=== PATIENT | male | born 1965 | race Two or more races ===

== ENCOUNTER 2019-08-31 11:19 | Inpatient (IN) | payer MEDICAID, OTHER ==
[~2019-08-31] VITALS: Ht 167.6 cm; Wt 90.0 kg
[2019-08-31] MEDS ORDERED: SODIUM CHLORIDE 0.9% 1,000 ML IV ONE ×4 (11:31→12:38)
[2019-08-31] MEDS ORDERED: PIPERACILLIN-TAZOB 3.375GM 100 ML IV ONE (12:45)
[2019-08-31] MEDS ORDERED: NOREPINEPHRINE 8 MG/250ML KIT 250 ML IV ONE (13:18)
[2019-08-31 13:20] LABS: Basophils # (auto) 0 10 ^3/uL (0-0.2); Basophils % (auto) 0.3 % (0.0-2.0); Eosinophils # (auto) 0 10 ^3/uL (0-0.8); Eosinophils % (auto) 0.1 % (0.0-7.0); Hematocrit 25.7 % (41.0-53.0); Hemoglobin 8.6 g/dL (13.5-17.5); Lymphocytes # (auto) 0.5 10 ^3/uL (0.4-5.4); Lymphocytes % (auto) 12.4 % (10.0-50.0); Mean Corpuscular Hemoglobin 29.8 pg (28.0-32.0); Mean Corpuscular Hgb Conc. 33.6 g/dL (32.0-36.0); Mean Corpuscular Volume 88.6 fL (80.0-100.0); Monocytes # (auto) 0.1 10 ^3/uL (0-1.3); Neutrophils # (auto) 3.6 10 ^3/uL (1.6-8.6); Neutrophils % (auto) 84.2 % (37.0-80.0); Platelet Count (auto) 201 10^3/uL (140-450); Red Cell Distribution Width 19.7 % (11.8-14.3); White Blood Cell 4.3 10^3/uL (4.4-10.8)
[2019-08-31 13:34] LABS: INR 1.22 (0.9-1.15); Partial Thromboplastin Time 35.6 sec (23.64-32.05)
[2019-08-31 13:40] LABS: Albumin 1.6 g/dL (3.4-5.0); Anion Gap 12 (5-15); Blood Urea Nitrogen 19 mg/dL (7-18); Calcium 7.4 mg/dL (8.5-10.1); Carbon Dioxide 32 mmol/L (21-32); Chloride 103 mmol/L (98-107); Glucose 151 mg/dL (74-106); Lipase 561 U/L (73-393); Sodium 147 mmol/L (136-145)
[2019-08-31] MEDS: NOREPINEPHRINE 8 MG/250ML KIT 250 ML IV SCH (13:43)
[2019-08-31 13:45] LABS: Alanine Aminotransferase 17 U/L (16-61); Alkaline Phosphatase 84 U/L (45-117); Aspartate Aminotransferase 14 U/L (15-37); BUN/Creatinine Ratio 10.4; Bilirubin, Total 0.3 mg/dL (0.2-1.0); GFR African American 51 mL/min; GFR Non-African American 42 mL/min
[2019-08-31 13:51] LABS: Potassium 1.5 mmol/L (3.5-5.1)
[2019-08-31] MEDS ORDERED: POTASSIUM CHL 20MEQ/100ML 300 ML IV ONE (13:52)
[2019-08-31] MEDS: POTASSIUM CHL 20MEQ/100ML 100 ML IV SCH ×4 (14:31→22:30)
[2019-08-31] MEDS ORDERED: NITROGLYCERIN 0.4 MG SL TAB SL PRN (15:15)
[2019-08-31] MEDS ORDERED: VANCOMYCIN PER PHARMACY 0 MG IV SCH (15:15)
[2019-08-31] MEDS ORDERED: ACETAMINOPHEN 500 MG TAB PO PRN (15:15)
[2019-08-31] MEDS ORDERED: MORPHINE SULF INJ 2 MG/ML SYRINGE 1ML IV PRN ×2 (15:15)
[2019-08-31] MEDS ORDERED: DEXTROSE (50%) 50ML SYRG IV PRN (15:15)
[2019-08-31] MEDS ORDERED: HYDROcodone-ACET 5/325MG TAB PO PRN (15:15)
[2019-08-31] MEDS ORDERED: DOCUSATE SOD 100 MG CAP PO PRN (15:15)
[2019-08-31] MEDS: SOD CHL 0.9%/ KCL 40MEQ 1,000 ML IV SCH (15:15)
[2019-08-31] MEDS ORDERED: VANCOMYCIN 1GM/250ML 250 ML IV ONE (15:30)
[2019-08-31] MEDS ORDERED: VANCOMYCIN 1GM/250ML 250 ML IV SCH (16:00)
[2019-08-31] MEDS: ACCU-CHEK COMFORT CURVE STRIP VI SCH ×2 (17:00→22:00)
[2019-08-31] MEDS: InsuLIN REG 1unit/0.01ml Soln (100units/ml) SC SCH ×2 (17:00→22:00)
[2019-08-31] MEDS: metroNIDAZOLE 500MG/100ML 100 ML IV SCH (18:24)
[2019-08-31 21:39] LABS: Calcium 7.5 mg/dL (8.5-10.1)
[2019-08-31 21:43] LABS: BUN/Creatinine Ratio 8.5; Bilirubin, Total 0.3 mg/dL (0.2-1.0)
[2019-08-31 21:59] LABS: Potassium 2.4 mmol/L (3.5-5.1)
[2019-08-31] MEDS: cefTRIAXone 1GM/50ML D5W 50 ML IV SCH (22:22)
[2019-09-01] VITALS (58 sets, daily range): BP systolic 94–129; BP diastolic 53–76
[2019-09-01] MEDS: POTASSIUM CHL 20MEQ/100ML 100 ML IV SCH ×4 (01:00→11:50)
[2019-09-01] MEDS: metroNIDAZOLE 500MG/100ML 100 ML IV SCH ×3 (02:00→18:32)
[2019-09-01] MEDS: SOD CHL 0.9%/ KCL 40MEQ 1,000 ML IV SCH ×3 (03:14→18:32)
[2019-09-01 05:44] LABS: Basophils # (auto) 0.1 10 ^3/uL (0-0.2); Basophils % (auto) 0.8 % (0.0-2.0); Eosinophils # (auto) 0 10 ^3/uL (0-0.8); Hematocrit 31.1 % (41.0-53.0); Hemoglobin 10.3 g/dL (13.5-17.5); Lymphocytes # (auto) 1.2 10 ^3/uL (0.4-5.4); Mean Corpuscular Hemoglobin 29.7 pg (28.0-32.0); Mean Corpuscular Hgb Conc. 33.1 g/dL (32.0-36.0); Mean Corpuscular Volume 89.8 fL (80.0-100.0); Monocytes # (auto) 0.7 10 ^3/uL (0-1.3); Monocytes % (auto) 4.4 % (0.0-12.0); Neutrophils # (auto) 12.9 10 ^3/uL (1.6-8.6); Neutrophils % (auto) 86.8 % (37.0-80.0); Nucleated Red Blood Cells % 0.1 %; Platelet Count (auto) 251 10^3/uL (140-450); Red Blood Cells 3.46 10^6/uL (4.5-5.90); White Blood Cell 14.8 10^3/uL (4.4-10.8)
[2019-09-01 05:56] LABS: Red Cell Distribution Width 20.3 % (11.8-14.3)
[2019-09-01 06:11] LABS: Calcium 7.3 mg/dL (8.5-10.1)
[2019-09-01 06:17] LABS: Albumin 1.9 g/dL (3.4-5.0); BUN/Creatinine Ratio 8.2; Bilirubin, Total 0.4 mg/dL (0.2-1.0); Magnesium 1.9 mg/dL (1.6-2.6); Total Protein 5.9 g/dL (6.4-8.2)
[2019-09-01 06:20] LABS: Potassium 2.9 mmol/L (3.5-5.1)
[2019-09-01] MEDS: ACCU-CHEK COMFORT CURVE STRIP VI SCH ×4 (06:51→21:48)
[2019-09-01] MEDS: InsuLIN REG 1unit/0.01ml Soln (100units/ml) SC SCH ×4 (06:51→21:48)
[2019-09-01] MEDS ORDERED: CATHFLO ACTIVASE (ALTEPLASE) 2 MG VIAL IV ONE (08:45)
[2019-09-01 10:00] LABS: Urine Bacteria FEW /hpf (None Seen); Urine Blood 1+ /uL (Negative); Urine Hyaline Cast FEW /lpf (0 - 2); Urine Mucus FEW (None Seen); Urine Specific Gravity 1.004 (1.001-1.035); Urine WBC 8 /hpf (0 - 3)
[2019-09-01] MEDS: FAMOTIDINE 20 MG TAB PO SCH (10:18)
[2019-09-01 14:13] LABS: BUN/Creatinine Ratio 7.6; Calcium 7.2 mg/dL (8.5-10.1); Potassium 3.9 mmol/L (3.5-5.1)
[2019-09-01] MEDS: NOREPINEPHRINE 8 MG/250ML KIT 250 ML IV SCH (14:21)
[2019-09-01] MEDS ORDERED: VANCOMYCIN 1GM/250ML 250 ML IV ONE (16:00)
[2019-09-01] MEDS ORDERED: METR500T PO (16:04)
[2019-09-01] MEDS ORDERED: CEFT1INJ6 IJ (16:04)
[2019-09-01] MEDS ORDERED: VANC125PO GT (16:05)
[2019-09-01] MEDS: cefTRIAXone 1GM/50ML D5W 50 ML IV SCH (21:48)
[2019-09-02] VITALS (30 sets, daily range): BP systolic 106–131; BP diastolic 57–82
[2019-09-02] MEDS: metroNIDAZOLE 500MG/100ML 100 ML IV SCH ×3 (02:00→18:00)
[2019-09-02 05:07] LABS: Calcium 7.6 mg/dL (8.5-10.1); Potassium 4.1 mmol/L (3.5-5.1)
[2019-09-02 05:12] LABS: Basophils # (auto) 0 10 ^3/uL (0-0.2); Basophils % (auto) 0.2 % (0.0-2.0); Eosinophils # (auto) 0 10 ^3/uL (0-0.8); Eosinophils % (auto) 0.1 % (0.0-7.0); Hematocrit 27.3 % (41.0-53.0); Hemoglobin 8.7 g/dL (13.5-17.5); Lymphocytes # (auto) 1.8 10 ^3/uL (0.4-5.4); Lymphocytes % (auto) 11.7 % (10.0-50.0); Mean Corpuscular Hgb Conc. 32.1 g/dL (32.0-36.0); Mean Corpuscular Volume 90.5 fL (80.0-100.0); Monocytes # (auto) 0.6 10 ^3/uL (0-1.3); Monocytes % (auto) 4.2 % (0.0-12.0); Neutrophils # (auto) 12.7 10 ^3/uL (1.6-8.6); Neutrophils % (auto) 83.8 % (37.0-80.0); Platelet Count (auto) 146 10^3/uL (140-450); Red Blood Cells 3.01 10^6/uL (4.5-5.90); Red Cell Distribution Width 20.8 % (11.8-14.3); White Blood Cell 15.1 10^3/uL (4.4-10.8)
[2019-09-02 05:14] LABS: Albumin 1.7 g/dL (3.4-5.0); BUN/Creatinine Ratio 8.1; Bilirubin, Total 0.4 mg/dL (0.2-1.0); Total Protein 5.4 g/dL (6.4-8.2)
[2019-09-02] MEDS: InsuLIN REG 1unit/0.01ml Soln (100units/ml) SC SCH ×4 (06:30→22:00)
[2019-09-02] MEDS: SOD CHL 0.9%/ KCL 40MEQ 1,000 ML IV SCH (06:30)
[2019-09-02] MEDS: ACCU-CHEK COMFORT CURVE STRIP VI SCH ×4 (06:30→22:24)
[2019-09-02] MEDS: FAMOTIDINE 20 MG TAB PO SCH (10:00)
[2019-09-02] MEDS: NOREPINEPHRINE 8 MG/250ML KIT 250 ML IV SCH (12:42)
[2019-09-02] MEDS: D5W/SOD CHL 0.45%/KCL 20MEQ 1,000 ML IV SCH ×2 (15:02→22:28)
[2019-09-02] MEDS: CEFEPIME 2 GM in SODIUM CHL 0.9% 50 ML IV SCH (15:02)
[2019-09-03] MEDS: CEFEPIME 2 GM in SODIUM CHL 0.9% 50 ML IV SCH ×2 (00:25→13:00)
[2019-09-03] MEDS: metroNIDAZOLE 500MG/100ML 100 ML IV SCH ×3 (01:31→17:40)
[2019-09-03 05:00] VITALS: BP 130/78
[2019-09-03] MEDS: InsuLIN REG 1unit/0.01ml Soln (100units/ml) SC SCH ×4 (06:10→21:37)
[2019-09-03] MEDS: ACCU-CHEK COMFORT CURVE STRIP VI SCH ×4 (06:10→21:37)
[2019-09-03 06:11] LABS: Basophils # (auto) 0 10 ^3/uL (0-0.2); Basophils % (auto) 0.4 % (0.0-2.0); Eosinophils # (auto) 0.1 10 ^3/uL (0-0.8); Hemoglobin 8.4 g/dL (13.5-17.5); Lymphocytes # (auto) 1.3 10 ^3/uL (0.4-5.4); Mean Corpuscular Hemoglobin 30.1 pg (28.0-32.0); Monocytes # (auto) 0.5 10 ^3/uL (0-1.3); White Blood Cell 11.8 10^3/uL (4.4-10.8)
[2019-09-03] MEDS: D5W/SOD CHL 0.45%/KCL 20MEQ 1,000 ML IV SCH ×2 (06:11→16:53)
[2019-09-03 06:15] LABS: Eosinophils % (auto) 0.6 % (0.0-7.0); Lymphocytes % (auto) 11.2 % (10.0-50.0); Mean Corpuscular Hgb Conc. 33.4 g/dL (32.0-36.0); Mean Corpuscular Volume 90.3 fL (80.0-100.0); Monocytes % (auto) 3.9 % (0.0-12.0); Neutrophils # (auto) 9.9 10 ^3/uL (1.6-8.6); Neutrophils % (auto) 83.9 % (37.0-80.0); Platelet Count (auto) 124 10^3/uL (140-450); Red Blood Cells 2.77 10^6/uL (4.5-5.90)
[2019-09-03 06:17] LABS: Red Cell Distribution Width 21.2 % (11.8-14.3)
[2019-09-03 06:32] LABS: Albumin 1.7 g/dL (3.4-5.0); Anion Gap 6 (5-15); Blood Urea Nitrogen 20 mg/dL (7-18); Calcium 7.9 mg/dL (8.5-10.1); Carbon Dioxide 30 mmol/L (21-32); Chloride 116 mmol/L (98-107); Glucose 119 mg/dL (74-106); Sodium 152 mmol/L (136-145)
[2019-09-03 06:39] LABS: Alanine Aminotransferase 17 U/L (16-61); Alkaline Phosphatase 102 U/L (45-117); Aspartate Aminotransferase 20 U/L (15-37); BUN/Creatinine Ratio 7.9; Bilirubin, Total 0.5 mg/dL (0.2-1.0); GFR African American 34 mL/min; GFR Non-African American 28 mL/min; Total Protein 5.5 g/dL (6.4-8.2)
[2019-09-03 09:00] VITALS: BP 126/69
[2019-09-03] MEDS: FAMOTIDINE 20 MG TAB PO SCH (10:01)
[2019-09-03 13:00] VITALS: BP 118/65
[2019-09-03] MEDS ORDERED: FLORASTOR (S. BOULARDII) 250 MG CAP PO ONE (16:00)
[2019-09-03 17:00] VITALS: BP 117/71
[2019-09-03] MEDS: LINEZOLID 600MG/300ML 300 ML IV SCH (21:37)
[2019-09-03 21:55] VITALS: BP 113/62
[2019-09-04] MEDS: CEFEPIME 2 GM in SODIUM CHL 0.9% 50 ML IV SCH ×2 (01:19→12:57)
[2019-09-04] MEDS: metroNIDAZOLE 500MG/100ML 100 ML IV SCH ×2 (01:20→09:47)
[2019-09-04 05:00] VITALS: BP 114/68
[2019-09-04] MEDS: D5W/SOD CHL 0.45%/KCL 20MEQ 1,000 ML IV SCH ×2 (05:34→12:58)
[2019-09-04] MEDS: ONDANSETRON HCL 4 MG/2 ML VIAL IV PRN (05:34)
[2019-09-04 06:11] LABS: Basophils # (auto) 0 10 ^3/uL (0-0.2); Basophils % (auto) 0.4 % (0.0-2.0); Eosinophils # (auto) 0.1 10 ^3/uL (0-0.8); Eosinophils % (auto) 1.5 % (0.0-7.0); Hematocrit 25.6 % (41.0-53.0); Hemoglobin 8.5 g/dL (13.5-17.5); Lymphocytes # (auto) 1.8 10 ^3/uL (0.4-5.4); Mean Corpuscular Hemoglobin 30.1 pg (28.0-32.0); Mean Corpuscular Hgb Conc. 33.2 g/dL (32.0-36.0); Mean Corpuscular Volume 90.7 fL (80.0-100.0); Monocytes # (auto) 0.4 10 ^3/uL (0-1.3); Monocytes % (auto) 5.1 % (0.0-12.0); Neutrophils # (auto) 5.9 10 ^3/uL (1.6-8.6); Nucleated Red Blood Cells % 0.1 %; Platelet Count (auto) 130 10^3/uL (140-450); Red Blood Cells 2.83 10^6/uL (4.5-5.90); White Blood Cell 8.3 10^3/uL (4.4-10.8)
[2019-09-04 06:17] LABS: Potassium 3.9 mmol/L (3.5-5.1)
[2019-09-04 06:19] LABS: Red Cell Distribution Width 20.7 % (11.8-14.3)
[2019-09-04 06:28] LABS: Albumin 1.7 g/dL (3.4-5.0); BUN/Creatinine Ratio 8.1; Bilirubin, Total 0.5 mg/dL (0.2-1.0); Calcium 7.6 mg/dL (8.5-10.1); Magnesium 1.5 mg/dL (1.6-2.6); Total Protein 5.6 g/dL (6.4-8.2)
[2019-09-04] MEDS: ACCU-CHEK COMFORT CURVE STRIP VI SCH ×4 (06:49→22:00)
[2019-09-04] MEDS: InsuLIN REG 1unit/0.01ml Soln (100units/ml) SC SCH ×4 (06:50→22:00)
[2019-09-04 09:00] VITALS: BP 121/76
[2019-09-04] MEDS: LINEZOLID 600MG/300ML 300 ML IV SCH ×2 (09:47→22:00)
[2019-09-04] MEDS: FLORASTOR (S. BOULARDII) 250 MG CAP PO SCH (09:47)
[2019-09-04] MEDS: FAMOTIDINE 20 MG TAB PO SCH (09:47)
[2019-09-04] MEDS: ENOXAPARIN SOD 30 MG/0.3 ML SYRINGE SC SCH (09:48)
[2019-09-04 13:00] VITALS: BP 112/72
[2019-09-04] MEDS: Glucerna Carbsteady SHAKE Stawberry 8oz PO SCH (17:48)
[2019-09-04 20:00] VITALS: BP 137/89
[2019-09-04 22:00] VITALS: BP 137/89
[2019-09-04] MEDS: metroNIDAZOLE 500 MG TAB PO SCH (22:00)
[2019-09-05] MEDS: D5W/SOD CHL 0.45%/KCL 20MEQ 1,000 ML IV SCH ×3 (01:12→12:15)
[2019-09-05] MEDS: CEFEPIME 2 GM in SODIUM CHL 0.9% 50 ML IV SCH ×2 (01:35→13:53)
[2019-09-05 05:00] VITALS: BP 116/73
[2019-09-05] MEDS: ACCU-CHEK COMFORT CURVE STRIP VI SCH ×4 (06:17→22:00)
[2019-09-05] MEDS: metroNIDAZOLE 500 MG TAB PO SCH ×3 (06:17→22:58)
[2019-09-05] MEDS: InsuLIN REG 1unit/0.01ml Soln (100units/ml) SC SCH ×4 (06:19→22:00)
[2019-09-05 06:51] LABS: Basophils # (auto) 0 10 ^3/uL (0-0.2); Basophils % (auto) 0.3 % (0.0-2.0); Eosinophils # (auto) 0.1 10 ^3/uL (0-0.8); Hemoglobin 8.3 g/dL (13.5-17.5); Monocytes # (auto) 0.3 10 ^3/uL (0-1.3)
[2019-09-05 06:53] LABS: Eosinophils % (auto) 1.3 % (0.0-7.0); Hematocrit 24.1 % (41.0-53.0); Lymphocytes # (auto) 1.4 10 ^3/uL (0.4-5.4); Lymphocytes % (auto) 26.9 % (10.0-50.0); Mean Corpuscular Hemoglobin 30.9 pg (28.0-32.0); Mean Corpuscular Hgb Conc. 34.5 g/dL (32.0-36.0); Mean Corpuscular Volume 89.6 fL (80.0-100.0); Monocytes % (auto) 6.9 % (0.0-12.0); Neutrophils # (auto) 3.2 10 ^3/uL (1.6-8.6); Neutrophils % (auto) 64.6 % (37.0-80.0); Nucleated Red Blood Cells % 0.1 %; Platelet Count (auto) 112 10^3/uL (140-450); Red Blood Cells 2.69 10^6/uL (4.5-5.90)
[2019-09-05 06:58] LABS: Red Cell Distribution Width 20.6 % (11.8-14.3)
[2019-09-05 07:04] LABS: BUN/Creatinine Ratio 7.6; Calcium 7.8 mg/dL (8.5-10.1); Potassium 3.7 mmol/L (3.5-5.1)
[2019-09-05] MEDS: Glucerna Carbsteady SHAKE Stawberry 8oz PO SCH ×2 (08:00→12:00)
[2019-09-05] MEDS ORDERED: diphenhdrAMINE HCL 50 MG/1 ML VL IV ONE (08:15)
[2019-09-05] MEDS ORDERED: MIDAZOLAM HCL 1MG/1ML-2 ML VIAL IV ONE (08:15)
[2019-09-05] MEDS ORDERED: LIDOCAINE VISCOUS 2% 15ML UD PO ONE (08:15)
[2019-09-05] MEDS ORDERED: fentaNYL CITRATE 100 MCG/2 ML VL IV ONE (08:15)
[2019-09-05] MEDS: FLORASTOR (S. BOULARDII) 250 MG CAP PO SCH (11:12)
[2019-09-05] MEDS: FAMOTIDINE 20 MG TAB PO SCH (11:12)
[2019-09-05] MEDS: ENOXAPARIN SOD 30 MG/0.3 ML SYRINGE SC SCH (11:13)
[2019-09-05] MEDS: LINEZOLID 600MG/300ML 300 ML IV SCH ×2 (11:27→22:56)
[2019-09-05 20:00] VITALS: BP 104/73
[2019-09-05 21:00] VITALS: BP 104/73
[2019-09-05] MEDS ORDERED: LORazepam 2MG/ML-1ML VIAL IV PRN ×2 (22:15)
[2019-09-05 22:47] LABS: Folate (Folic Acid) 9.75 ng/mL (5.38-24)
[2019-09-05] MEDS: CARVEDILOL 3.125 MG TAB PO SCH (22:57)
[2019-09-05] MEDS: ONDANSETRON HCL 4 MG/2 ML VIAL IV PRN (22:58)
[2019-09-06] VITALS (7 sets, daily range): BP systolic 101–117; BP diastolic 69–78
[2019-09-06] MEDS: CEFEPIME 2 GM in SODIUM CHL 0.9% 50 ML IV SCH (00:59)
[2019-09-06] MEDS: D5W/SOD CHL 0.45%/KCL 20MEQ 1,000 ML IV SCH (04:55)
[2019-09-06] MEDS: metroNIDAZOLE 500 MG TAB PO SCH ×3 (06:33→22:49)
[2019-09-06] MEDS: ACCU-CHEK COMFORT CURVE STRIP VI SCH ×4 (06:33→22:30)
[2019-09-06] MEDS: InsuLIN REG 1unit/0.01ml Soln (100units/ml) SC SCH ×4 (06:33→22:30)
[2019-09-06] MEDS: Glucerna Carbsteady SHAKE Stawberry 8oz PO SCH ×3 (08:00→18:18)
[2019-09-06] MEDS ORDERED: MAGNESIUM SULFATE 1GM/100ML 100 ML IV ONE ×2 (08:30→09:30)
[2019-09-06] MEDS: FAMOTIDINE 20 MG TAB PO SCH (09:25)
[2019-09-06] MEDS: LINEZOLID 600MG/300ML 300 ML IV SCH ×2 (09:26→22:47)
[2019-09-06] MEDS: CARVEDILOL 3.125 MG TAB PO SCH ×2 (09:26→22:49)
[2019-09-06] MEDS: ENOXAPARIN SOD 30 MG/0.3 ML SYRINGE SC SCH (09:27)
[2019-09-06] MEDS: FLORASTOR (S. BOULARDII) 250 MG CAP PO SCH (09:41)
[2019-09-06] MEDS ORDERED: PROMETHAZINE W/CODEINE 5 ML ORAL SYRUP PO PRN (12:45)
[2019-09-07] VITALS (7 sets, daily range): BP systolic 111–123; BP diastolic 70–82
[2019-09-07] MEDS: metroNIDAZOLE 500 MG TAB PO SCH ×3 (06:32→21:48)
[2019-09-07] MEDS: InsuLIN REG 1unit/0.01ml Soln (100units/ml) SC SCH ×4 (06:32→22:00)
[2019-09-07] MEDS: ACCU-CHEK COMFORT CURVE STRIP VI SCH ×4 (06:32→22:00)
[2019-09-07 07:41] LABS: Basophils # (auto) 0 10 ^3/uL (0-0.2); Basophils % (auto) 0.2 % (0.0-2.0); Eosinophils # (auto) 0 10 ^3/uL (0-0.8); Eosinophils % (auto) 0.6 % (0.0-7.0); Hematocrit 26.6 % (41.0-53.0); Lymphocytes # (auto) 1.2 10 ^3/uL (0.4-5.4); Lymphocytes % (auto) 21.2 % (10.0-50.0); Mean Corpuscular Hemoglobin 30.5 pg (28.0-32.0); Mean Corpuscular Hgb Conc. 33.9 g/dL (32.0-36.0); Mean Corpuscular Volume 89.8 fL (80.0-100.0); Monocytes # (auto) 0.3 10 ^3/uL (0-1.3); Monocytes % (auto) 5.7 % (0.0-12.0); Neutrophils # (auto) 4.3 10 ^3/uL (1.6-8.6); Neutrophils % (auto) 72.3 % (37.0-80.0); Nucleated Red Blood Cells % 0.1 %; Platelet Count (auto) 109 10^3/uL (140-450); Red Blood Cells 2.97 10^6/uL (4.5-5.90); White Blood Cell 5.9 10^3/uL (4.4-10.8)
[2019-09-07 07:55] LABS: Red Cell Distribution Width 20.3 % (11.8-14.3)
[2019-09-07] MEDS: Glucerna Carbsteady SHAKE Stawberry 8oz PO SCH ×3 (08:00→18:00)
[2019-09-07 08:05] LABS: BUN/Creatinine Ratio 8.5; Potassium 4.1 mmol/L (3.5-5.1)
[2019-09-07] MEDS ORDERED: levoFLOXacin 500 MG TAB PO SCH (10:00)
[2019-09-07] MEDS: LINEZOLID 600MG/300ML 300 ML IV SCH ×2 (10:25→21:47)
[2019-09-07] MEDS: FAMOTIDINE 20 MG TAB PO SCH (10:25)
[2019-09-07] MEDS: FLORASTOR (S. BOULARDII) 250 MG CAP PO SCH (10:26)
[2019-09-07] MEDS: CARVEDILOL 3.125 MG TAB PO SCH ×2 (10:26→21:48)
[2019-09-07] MEDS: ENOXAPARIN SOD 30 MG/0.3 ML SYRINGE SC SCH (10:28)
[2019-09-07] MEDS: ONDANSETRON HCL 4 MG/2 ML VIAL IV PRN (12:20)
[2019-09-08 00:25] VITALS: BP 123/82
[2019-09-08 05:00] VITALS: BP 118/70
[2019-09-08] MEDS: metroNIDAZOLE 500 MG TAB PO SCH ×3 (06:48→22:08)
[2019-09-08] MEDS: ACCU-CHEK COMFORT CURVE STRIP VI SCH ×4 (06:49→22:00)
[2019-09-08] MEDS: InsuLIN REG 1unit/0.01ml Soln (100units/ml) SC SCH ×4 (06:50→22:00)
[2019-09-08] MEDS: Glucerna Carbsteady SHAKE Stawberry 8oz PO SCH ×3 (08:00→19:00)
[2019-09-08 09:00] VITALS: BP 126/78
[2019-09-08] MEDS: ONDANSETRON HCL 4 MG/2 ML VIAL IV PRN (09:47)
[2019-09-08] MEDS ORDERED: levoFLOXacin 250MG 50 ML IV SCH (10:00)
[2019-09-08] MEDS: LINEZOLID 600MG/300ML 300 ML IV SCH ×2 (10:15→22:06)
[2019-09-08] MEDS: levoFLOXacin 250 MG TAB PO SCH (10:16)
[2019-09-08] MEDS: ENOXAPARIN SOD 30 MG/0.3 ML SYRINGE SC SCH (10:16)
[2019-09-08] MEDS: FAMOTIDINE 20 MG TAB PO SCH (10:16)
[2019-09-08] MEDS: FLORASTOR (S. BOULARDII) 250 MG CAP PO SCH (10:21)
[2019-09-08] MEDS: CARVEDILOL 3.125 MG TAB PO SCH ×2 (10:23→22:07)
[2019-09-08 13:00] VITALS: BP 119/74
[2019-09-08] MEDS ORDERED: FAMOTIDINE 20 MG TAB PO ONE (14:45)
[2019-09-08 16:32] VITALS: BP 119/71
[2019-09-08 22:00] VITALS: BP 117/77
[2019-09-09] MEDS: ONDANSETRON HCL 4 MG/2 ML VIAL IV PRN (05:03)
[2019-09-09 05:14] VITALS: BP 125/78
[2019-09-09] MEDS: metroNIDAZOLE 500 MG TAB PO SCH ×3 (06:09→22:00)
[2019-09-09 06:22] LABS: Basophils # (auto) 0 10 ^3/uL (0-0.2); Basophils % (auto) 0.2 % (0.0-2.0); Eosinophils # (auto) 0 10 ^3/uL (0-0.8); Eosinophils % (auto) 0.5 % (0.0-7.0); Hematocrit 25.5 % (41.0-53.0); Hemoglobin 8.8 g/dL (13.5-17.5); Lymphocytes % (auto) 20.6 % (10.0-50.0); Mean Corpuscular Hemoglobin 30.5 pg (28.0-32.0); Mean Corpuscular Hgb Conc. 34.4 g/dL (32.0-36.0); Mean Corpuscular Volume 88.7 fL (80.0-100.0); Monocytes # (auto) 0.2 10 ^3/uL (0-1.3); Neutrophils # (auto) 3.6 10 ^3/uL (1.6-8.6); Neutrophils % (auto) 73.7 % (37.0-80.0); Platelet Count (auto) 135 10^3/uL (140-450); Red Blood Cells 2.87 10^6/uL (4.5-5.90); Red Cell Distribution Width 19.8 % (11.8-14.3); White Blood Cell 4.9 10^3/uL (4.4-10.8)
[2019-09-09] MEDS: InsuLIN REG 1unit/0.01ml Soln (100units/ml) SC SCH ×4 (06:40→22:00)
[2019-09-09] MEDS: ACCU-CHEK COMFORT CURVE STRIP VI SCH ×4 (06:40→22:00)
[2019-09-09 06:42] LABS: BUN/Creatinine Ratio 8.9; Calcium 7.7 mg/dL (8.5-10.1); Potassium 3.5 mmol/L (3.5-5.1)
[2019-09-09 09:00] VITALS: BP 116/76
[2019-09-09] MEDS: Glucerna Carbsteady SHAKE Stawberry 8oz PO SCH ×4 (09:26→18:45)
[2019-09-09] MEDS: CARVEDILOL 3.125 MG TAB PO SCH ×2 (10:17→22:00)
[2019-09-09] MEDS: LINEZOLID 600MG/300ML 300 ML IV SCH ×2 (10:17→22:00)
[2019-09-09] MEDS: FLORASTOR (S. BOULARDII) 250 MG CAP PO SCH (10:18)
[2019-09-09] MEDS: FAMOTIDINE 20 MG TAB PO SCH (10:18)
[2019-09-09] MEDS: levoFLOXacin 250 MG TAB PO SCH (10:20)
[2019-09-09] MEDS: ENOXAPARIN SOD 30 MG/0.3 ML SYRINGE SC SCH (10:21)
[2019-09-09 13:00] VITALS: BP 132/81
[2019-09-09] MEDS: SOD CHL 0.45% 1,000 ML IV SCH (13:12)
[2019-09-09 17:00] VITALS: BP 122/75
[2019-09-09 22:00] VITALS: BP 123/76
[2019-09-10 05:00] VITALS: BP 125/71
[2019-09-10] MEDS: SOD CHL 0.45% 1,000 ML IV SCH (05:25)
[2019-09-10 06:06] LABS: BUN/Creatinine Ratio 8.7; Calcium 7.7 mg/dL (8.5-10.1); Potassium 3.5 mmol/L (3.5-5.1)
[2019-09-10] MEDS: metroNIDAZOLE 500 MG TAB PO SCH (06:49)
[2019-09-10] MEDS: InsuLIN REG 1unit/0.01ml Soln (100units/ml) SC SCH ×4 (07:00→21:31)
[2019-09-10] MEDS: ACCU-CHEK COMFORT CURVE STRIP VI SCH ×4 (07:03→21:31)
[2019-09-10 08:00] VITALS: BP 136/83
[2019-09-10] MEDS: Glucerna Carbsteady SHAKE Stawberry 8oz PO SCH ×3 (08:00→17:37)
[2019-09-10 08:17] LABS: INR 1.13 (0.9-1.15); Partial Thromboplastin Time 38.4 sec (23.64-32.05)
[2019-09-10 09:00] VITALS: BP 136/83
[2019-09-10] MEDS: FLORASTOR (S. BOULARDII) 250 MG CAP PO SCH (10:00)
[2019-09-10] MEDS ORDERED: MEGESTROL ACET 400MG/10ML ORAL SUSP PO SCH (10:00)
[2019-09-10] MEDS: FAMOTIDINE 20 MG TAB PO SCH (10:00)
[2019-09-10] MEDS: CARVEDILOL 3.125 MG TAB PO SCH ×2 (10:00→21:51)
[2019-09-10] MEDS: levoFLOXacin 250 MG TAB PO SCH (10:00)
[2019-09-10] MEDS: LINEZOLID 600MG/300ML 300 ML IV SCH ×2 (10:11→21:31)
[2019-09-10] MEDS: ENOXAPARIN SOD 30 MG/0.3 ML SYRINGE SC SCH (10:16)
[2019-09-10 13:00] VITALS: BP 133/81
[2019-09-10 13:44] LABS: Basophils # (auto) 0 10 ^3/uL (0-0.2); Basophils % (auto) 0.1 % (0.0-2.0); Eosinophils # (auto) 0 10 ^3/uL (0-0.8); Eosinophils % (auto) 0.3 % (0.0-7.0); Hematocrit 27.6 % (41.0-53.0); Hemoglobin 9.2 g/dL (13.5-17.5); Lymphocytes # (auto) 0.8 10 ^3/uL (0.4-5.4); Lymphocytes % (auto) 16.8 % (10.0-50.0); Mean Corpuscular Hemoglobin 29.4 pg (28.0-32.0); Mean Corpuscular Hgb Conc. 33.2 g/dL (32.0-36.0); Mean Corpuscular Volume 88.6 fL (80.0-100.0); Monocytes # (auto) 0.2 10 ^3/uL (0-1.3); Monocytes % (auto) 4.5 % (0.0-12.0); Neutrophils # (auto) 3.9 10 ^3/uL (1.6-8.6); Neutrophils % (auto) 78.3 % (37.0-80.0); Platelet Count (auto) 151 10^3/uL (140-450); Red Blood Cells 3.12 10^6/uL (4.5-5.90); Red Cell Distribution Width 19.7 % (11.8-14.3); White Blood Cell 4.9 10^3/uL (4.4-10.8)
[2019-09-10 13:57] LABS: Albumin 1.8 g/dL (3.4-5.0); Calcium 7.8 mg/dL (8.5-10.1); Potassium 3.7 mmol/L (3.5-5.1)
[2019-09-10 14:00] LABS: BUN/Creatinine Ratio 8.6; Bilirubin, Total 0.6 mg/dL (0.2-1.0); INR 1.18 (0.9-1.15); Partial Thromboplastin Time 44.4 sec (23.64-32.05); Total Protein 5.8 g/dL (6.4-8.2)
[2019-09-10] MEDS: SODIUM CHLORIDE 0.9% 1,000 ML IV SCH (14:45)
[2019-09-10 17:00] VITALS: BP 124/84
[2019-09-10] MEDS: SUCRALFATE 1 GM/10 ML ORAL SUSP PO SCH (17:00)
[2019-09-10 22:00] VITALS: BP 129/75
[2019-09-11 05:00] VITALS: BP 128/72
[2019-09-11] MEDS: SUCRALFATE 1 GM/10 ML ORAL SUSP PO SCH ×2 (06:11→17:00)
[2019-09-11] MEDS: InsuLIN REG 1unit/0.01ml Soln (100units/ml) SC SCH ×4 (06:11→22:00)
[2019-09-11] MEDS: ACCU-CHEK COMFORT CURVE STRIP VI SCH ×4 (06:12→22:35)
[2019-09-11 08:00] VITALS: BP 116/80
[2019-09-11] MEDS: Glucerna Carbsteady SHAKE Stawberry 8oz PO SCH ×3 (08:00→17:45)
[2019-09-11] MEDS: FLORASTOR (S. BOULARDII) 250 MG CAP PO SCH (08:58)
[2019-09-11] MEDS: FAMOTIDINE 20 MG TAB PO SCH (08:58)
[2019-09-11] MEDS: ENOXAPARIN SOD 30 MG/0.3 ML SYRINGE SC SCH (08:58)
[2019-09-11] MEDS: CARVEDILOL 3.125 MG TAB PO SCH ×2 (08:58→22:29)
[2019-09-11] MEDS: SODIUM CHLORIDE 0.9% 1,000 ML IV SCH ×2 (08:59→22:26)
[2019-09-11] MEDS ORDERED: SODIUM CHLORIDE LOCK 10 ML ONE (09:54)
[2019-09-11] MEDS ORDERED: fentaNYL CITRATE 100 MCG/2 ML VL ONE (09:54)
[2019-09-11] MEDS ORDERED: MIDAZOLAM HCL 1MG/1ML-2 ML VIAL ONE (09:54)
[2019-09-11] MEDS ORDERED: ONDANSETRON HCL 4 MG/2 ML VIAL ONE (09:54)
[2019-09-11] MEDS ORDERED: PROPOFOL 10 MG/ML 20 ML IV ONE (09:54)
[2019-09-11] MEDS: levoFLOXacin 250MG 50 ML IV SCH (10:00)
[2019-09-11] MEDS: LINEZOLID 600MG/300ML 300 ML IV SCH ×2 (10:00→22:27)
[2019-09-11] MEDS ORDERED: BUPIVACAINE HCL 50 ML ONE (10:57)
[2019-09-11] MEDS ORDERED: ceFAZolin 1GM/50ML 50 ML IV ONE (11:09)
[2019-09-11] MEDS ORDERED: EPINEPHrine HCL 1 MG/1 ML AMP ONE (11:33)
[2019-09-11 16:57] VITALS: BP 130/77
[2019-09-11 22:00] VITALS: BP 140/73
[2019-09-12 05:00] VITALS: BP 136/73
[2019-09-12 06:23] LABS: Basophils # (auto) 0 10 ^3/uL (0-0.2); Basophils % (auto) 0.5 % (0.0-2.0); Eosinophils # (auto) 0 10 ^3/uL (0-0.8); Eosinophils % (auto) 0.5 % (0.0-7.0); Hematocrit 26.4 % (41.0-53.0); Lymphocytes # (auto) 0.7 10 ^3/uL (0.4-5.4); Lymphocytes % (auto) 17.9 % (10.0-50.0); Mean Corpuscular Hemoglobin 30.2 pg (28.0-32.0); Mean Corpuscular Hgb Conc. 34.1 g/dL (32.0-36.0); Mean Corpuscular Volume 88.5 fL (80.0-100.0); Monocytes # (auto) 0.2 10 ^3/uL (0-1.3); Monocytes % (auto) 4.1 % (0.0-12.0); Neutrophils # (auto) 3.2 10 ^3/uL (1.6-8.6); Nucleated Red Blood Cells % 0.1 %; Platelet Count (auto) 127 10^3/uL (140-450); Red Blood Cells 2.98 10^6/uL (4.5-5.90); Red Cell Distribution Width 19.3 % (11.8-14.3); White Blood Cell 4.1 10^3/uL (4.4-10.8)
[2019-09-12 06:35] LABS: Calcium 7.6 mg/dL (8.5-10.1); Potassium 3.1 mmol/L (3.5-5.1)
[2019-09-12 06:38] LABS: BUN/Creatinine Ratio 8.4
[2019-09-12] MEDS: SUCRALFATE 1 GM/10 ML ORAL SUSP PO SCH ×2 (07:00→17:00)
[2019-09-12] MEDS: InsuLIN REG 1unit/0.01ml Soln (100units/ml) SC SCH ×4 (07:00→22:00)
[2019-09-12] MEDS: ACCU-CHEK COMFORT CURVE STRIP VI SCH ×4 (07:20→22:03)
[2019-09-12] MEDS: Glucerna Carbsteady SHAKE Stawberry 8oz PO SCH ×3 (08:00→17:28)
[2019-09-12 08:34] VITALS: BP 126/70
[2019-09-12] MEDS: levoFLOXacin 250MG 50 ML IV SCH (10:00)
[2019-09-12] MEDS: LINEZOLID 600MG/300ML 300 ML IV SCH ×2 (10:00→22:00)
[2019-09-12] MEDS: FAMOTIDINE 20 MG TAB PO SCH (10:00)
[2019-09-12] MEDS: CARVEDILOL 3.125 MG TAB PO SCH ×2 (10:00→22:00)
[2019-09-12] MEDS: ENOXAPARIN SOD 30 MG/0.3 ML SYRINGE SC SCH (10:00)
[2019-09-12] MEDS: FLORASTOR (S. BOULARDII) 250 MG CAP PO SCH (10:00)
[2019-09-12] MEDS ORDERED: POTASSIUM EFFERVESENT TAB 25 MEQ PO ONE (12:15)
[2019-09-12 13:00] VITALS: BP 127/78
[2019-09-12 16:47] VITALS: BP 132/74
[2019-09-12] MEDS: SODIUM CHLORIDE 0.9% 1,000 ML IV SCH (17:27)
[2019-09-12 21:53] VITALS: BP 140/86
[2019-09-13 05:00] VITALS: BP 120/70
[2019-09-13] MEDS: ACCU-CHEK COMFORT CURVE STRIP VI SCH ×4 (06:11→22:00)
[2019-09-13] MEDS: InsuLIN REG 1unit/0.01ml Soln (100units/ml) SC SCH ×4 (06:12→22:00)
[2019-09-13] MEDS: SUCRALFATE 1 GM/10 ML ORAL SUSP PO SCH ×2 (06:12→17:36)
[2019-09-13 06:31] LABS: Calcium 7.7 mg/dL (8.5-10.1)
[2019-09-13 06:37] LABS: Potassium 2.9 mmol/L (3.5-5.1)
[2019-09-13] MEDS ORDERED: POTASSIUM EFFERVESENT TAB 25 MEQ PO ONE (07:00)
[2019-09-13] MEDS: Glucerna Carbsteady SHAKE Stawberry 8oz PO SCH ×3 (08:00→17:36)
[2019-09-13] MEDS ORDERED: SODIUM CHLORIDE LOCK 10 ML ONE (08:24)
[2019-09-13] MEDS ORDERED: MIDAZOLAM HCL 5 MG/ML-1ML VIAL ONE (08:24)
[2019-09-13] MEDS ORDERED: diphenhdrAMINE HCL 50 MG/1 ML VL ONE (08:24)
[2019-09-13] MEDS ORDERED: LIDOCAINE VISCOUS 2% 15ML UD ONE (08:24)
[2019-09-13] MEDS ORDERED: fentaNYL CITRATE 100 MCG/2 ML VL ONE (08:25)
[2019-09-13 08:56] VITALS: BP 135/78
[2019-09-13] MEDS: SODIUM CHLORIDE 0.9% 1,000 ML IV SCH (09:25)
[2019-09-13] MEDS: levoFLOXacin 250MG 50 ML IV SCH (09:33)
[2019-09-13] MEDS: PANTOPRAZOLE 40 MG/10 ML VIAL INJ IV SCH (09:34)
[2019-09-13] MEDS: LINEZOLID 600MG/300ML 300 ML IV SCH ×2 (09:34→22:26)
[2019-09-13] MEDS: CARVEDILOL 3.125 MG TAB PO SCH ×3 (09:36→22:00)
[2019-09-13] MEDS: FLORASTOR (S. BOULARDII) 250 MG CAP PO SCH ×2 (09:36→09:55)
[2019-09-13] MEDS: ENOXAPARIN SOD 30 MG/0.3 ML SYRINGE SC SCH ×2 (09:38→09:56)
[2019-09-13 13:00] VITALS: BP 110/76
[2019-09-13] MEDS ORDERED: MULTIPLE VITAMIN TAB PO ONE (13:00)
[2019-09-13] MEDS: POTASSIUM CHL 20MEQ/100ML 100 ML IV SCH ×3 (13:51→17:36)
[2019-09-13] MEDS: NYSTATIN (MOUTH-THROAT) 500,000 UNITS/5 ML SUSP MT SCH ×2 (17:37→22:00)
[2019-09-13 22:00] VITALS: BP 140/81
[2019-09-13] MEDS: METOCLOPRAMIDE HCL 5MG/ml INJ 2ml VIAL IV SCH (22:26)
[2019-09-14] MEDS: SODIUM CHLORIDE 0.9% 1,000 ML IV SCH ×2 (01:57→17:46)
[2019-09-14 05:01] VITALS: BP 122/74
[2019-09-14] MEDS: NYSTATIN (MOUTH-THROAT) 500,000 UNITS/5 ML SUSP MT SCH ×5 (06:00→22:50)
[2019-09-14] MEDS: SUCRALFATE 1 GM/10 ML ORAL SUSP PO SCH ×3 (06:28→17:47)
[2019-09-14] MEDS: METOCLOPRAMIDE HCL 5MG/ml INJ 2ml VIAL IV SCH ×2 (06:28→14:36)
[2019-09-14] MEDS: ACCU-CHEK COMFORT CURVE STRIP VI SCH ×4 (06:50→22:54)
[2019-09-14] MEDS: InsuLIN REG 1unit/0.01ml Soln (100units/ml) SC SCH ×4 (06:51→22:50)
[2019-09-14] MEDS: Glucerna Carbsteady SHAKE Stawberry 8oz PO SCH ×3 (08:05→17:46)
[2019-09-14 09:10] LABS: Basophils # (auto) 0 10 ^3/uL (0-0.2); Basophils % (auto) 0.1 % (0.0-2.0); Eosinophils # (auto) 0 10 ^3/uL (0-0.8); Eosinophils % (auto) 0.5 % (0.0-7.0); Hemoglobin 7.8 g/dL (13.5-17.5); Lymphocytes # (auto) 1.1 10 ^3/uL (0.4-5.4); White Blood Cell 5.5 10^3/uL (4.4-10.8)
[2019-09-14 09:11] LABS: Hematocrit 23.1 % (41.0-53.0); Lymphocytes % (auto) 19.5 % (10.0-50.0); Mean Corpuscular Hgb Conc. 33.6 g/dL (32.0-36.0); Mean Corpuscular Volume 89.2 fL (80.0-100.0); Monocytes # (auto) 0.2 10 ^3/uL (0-1.3); Monocytes % (auto) 2.9 % (0.0-12.0); Neutrophils # (auto) 4.3 10 ^3/uL (1.6-8.6); Platelet Count (auto) 96 10^3/uL (140-450); Red Blood Cells 2.58 10^6/uL (4.5-5.90); Red Cell Distribution Width 18.7 % (11.8-14.3)
[2019-09-14 09:33] LABS: BUN/Creatinine Ratio 7.8; Calcium 7.7 mg/dL (8.5-10.1); Potassium 3.5 mmol/L (3.5-5.1)
[2019-09-14 09:35] VITALS: BP 130/69
[2019-09-14] MEDS: ENOXAPARIN SOD 30 MG/0.3 ML SYRINGE SC SCH (10:00)
[2019-09-14] MEDS: CARVEDILOL 3.125 MG TAB PO SCH ×2 (10:00→22:50)
[2019-09-14] MEDS: MULTIPLE VITAMIN TAB PO SCH (10:00)
[2019-09-14] MEDS: FLORASTOR (S. BOULARDII) 250 MG CAP PO SCH (10:00)
[2019-09-14] MEDS: LINEZOLID 600MG/300ML 300 ML IV SCH ×2 (11:07→22:57)
[2019-09-14] MEDS: levoFLOXacin 250MG 50 ML IV SCH (11:07)
[2019-09-14] MEDS: PANTOPRAZOLE 40 MG/10 ML VIAL INJ IV SCH (11:15)
[2019-09-14 13:00] VITALS: BP 112/69
[2019-09-14 17:04] VITALS: BP 128/77
[2019-09-14] MEDS: METOCLOPRAMIDE HCL 10 MG TAB PO SCH ×2 (17:46→22:50)
[2019-09-14 19:32] LABS: Hemoglobin 7.7 g/dL (13.5-17.5)
[2019-09-14 19:34] LABS: Hematocrit 22.7 % (41.0-53.0)
[2019-09-14 22:20] VITALS: BP 129/75
[2019-09-15 05:04] VITALS: BP 136/73
[2019-09-15] MEDS: ONDANSETRON HCL 4 MG/2 ML VIAL IV PRN (05:28)
[2019-09-15] MEDS: NYSTATIN (MOUTH-THROAT) 500,000 UNITS/5 ML SUSP MT SCH ×4 (06:00→21:46)
[2019-09-15 06:09] LABS: Basophils # (auto) 0 10 ^3/uL (0-0.2); Eosinophils # (auto) 0 10 ^3/uL (0-0.8); Hematocrit 22.8 % (41.0-53.0); Hemoglobin 7.7 g/dL (13.5-17.5); Lymphocytes # (auto) 1.1 10 ^3/uL (0.4-5.4); Mean Corpuscular Hgb Conc. 33.8 g/dL (32.0-36.0); Monocytes # (auto) 0.1 10 ^3/uL (0-1.3)
[2019-09-15 06:12] LABS: Basophils % (auto) 0.2 % (0.0-2.0); Eosinophils % (auto) 0.4 % (0.0-7.0); Lymphocytes % (auto) 21.1 % (10.0-50.0); Mean Corpuscular Hemoglobin 30.3 pg (28.0-32.0); Mean Corpuscular Volume 89.6 fL (80.0-100.0); Monocytes % (auto) 2.7 % (0.0-12.0); Neutrophils # (auto) 4.1 10 ^3/uL (1.6-8.6); Neutrophils % (auto) 75.6 % (37.0-80.0); Platelet Count (auto) 90 10^3/uL (140-450); Red Blood Cells 2.54 10^6/uL (4.5-5.90); Red Cell Distribution Width 18.2 % (11.8-14.3); White Blood Cell 5.4 10^3/uL (4.4-10.8)
[2019-09-15] MEDS: SUCRALFATE 1 GM/10 ML ORAL SUSP PO SCH ×2 (06:21→17:00)
[2019-09-15] MEDS: METOCLOPRAMIDE HCL 10 MG TAB PO SCH ×4 (06:21→21:45)
[2019-09-15] MEDS: ACCU-CHEK COMFORT CURVE STRIP VI SCH ×4 (06:21→21:44)
[2019-09-15] MEDS: InsuLIN REG 1unit/0.01ml Soln (100units/ml) SC SCH ×4 (06:22→21:45)
[2019-09-15 06:25] LABS: Calcium 7.6 mg/dL (8.5-10.1); Potassium 3.1 mmol/L (3.5-5.1)
[2019-09-15 06:29] LABS: BUN/Creatinine Ratio 7.1
[2019-09-15] MEDS: Glucerna Carbsteady SHAKE Stawberry 8oz PO SCH ×3 (08:00→17:42)
[2019-09-15 09:08] VITALS: BP 131/80
[2019-09-15] MEDS: ENOXAPARIN SOD 30 MG/0.3 ML SYRINGE SC SCH (10:00)
[2019-09-15] MEDS: LINEZOLID 600MG/300ML 300 ML IV SCH ×2 (10:16→21:46)
[2019-09-15] MEDS: PANTOPRAZOLE 40 MG/10 ML VIAL INJ IV SCH (10:17)
[2019-09-15] MEDS: levoFLOXacin 250MG 50 ML IV SCH (10:17)
[2019-09-15] MEDS: MULTIPLE VITAMIN TAB PO SCH (10:25)
[2019-09-15] MEDS: FLORASTOR (S. BOULARDII) 250 MG CAP PO SCH (10:25)
[2019-09-15] MEDS: CARVEDILOL 3.125 MG TAB PO SCH ×2 (10:27→21:46)
[2019-09-15] MEDS ORDERED: POTASSIUM EFFERVESENT TAB 25 MEQ PO ONE (12:15)
[2019-09-15 12:47] VITALS: BP 121/69
[2019-09-15] MEDS: SODIUM CHLORIDE 0.9% 1,000 ML IV SCH (13:18)
[2019-09-15] MEDS ORDERED: POTASSIUM CHL 20MEQ/100ML 100 ML IV ONE (13:30)
[2019-09-15 17:00] VITALS: BP 111/69
[2019-09-15 22:31] VITALS: BP 119/68
[2019-09-16 05:25] VITALS: BP 110/65
[2019-09-16] MEDS: NYSTATIN (MOUTH-THROAT) 500,000 UNITS/5 ML SUSP MT SCH ×4 (05:54→22:00)
[2019-09-16] MEDS: ACCU-CHEK COMFORT CURVE STRIP VI SCH ×4 (06:33→22:00)
[2019-09-16] MEDS: InsuLIN REG 1unit/0.01ml Soln (100units/ml) SC SCH ×4 (06:34→22:00)
[2019-09-16] MEDS: METOCLOPRAMIDE HCL 10 MG TAB PO SCH ×4 (06:35→22:00)
[2019-09-16] MEDS: SUCRALFATE 1 GM/10 ML ORAL SUSP PO SCH ×2 (06:36→17:00)
[2019-09-16 06:57] LABS: Hemoglobin 7.2 g/dL (13.5-17.5); Platelet Count (auto) 67 10^3/uL (140-450); White Blood Cell 4.6 10^3/uL (4.4-10.8)
[2019-09-16 07:00] LABS: Basophils # (auto) 0 10 ^3/uL (0-0.2); Basophils % (auto) 0.1 % (0.0-2.0); Eosinophils # (auto) 0 10 ^3/uL (0-0.8); Eosinophils % (auto) 0.8 % (0.0-7.0); Hematocrit 21.1 % (41.0-53.0); Lymphocytes # (auto) 1.3 10 ^3/uL (0.4-5.4); Lymphocytes % (auto) 27.6 % (10.0-50.0); Mean Corpuscular Hemoglobin 30.5 pg (28.0-32.0); Mean Corpuscular Hgb Conc. 34.2 g/dL (32.0-36.0); Mean Corpuscular Volume 89.3 fL (80.0-100.0); Monocytes # (auto) 0.1 10 ^3/uL (0-1.3); Monocytes % (auto) 2.5 % (0.0-12.0); Neutrophils # (auto) 3.2 10 ^3/uL (1.6-8.6); Red Blood Cells 2.36 10^6/uL (4.5-5.90); Red Cell Distribution Width 17.3 % (11.8-14.3)
[2019-09-16 07:11] LABS: Calcium 7.6 mg/dL (8.5-10.1); Potassium 3.2 mmol/L (3.5-5.1)
[2019-09-16 07:14] LABS: BUN/Creatinine Ratio 7.1
[2019-09-16] MEDS: Glucerna Carbsteady SHAKE Stawberry 8oz PO SCH ×3 (08:00→17:35)
[2019-09-16 09:00] VITALS: BP 118/59
[2019-09-16] MEDS ORDERED: ENOXAPARIN SOD 30 MG/0.3 ML SYRINGE SC SCH (10:00)
[2019-09-16] MEDS: FLORASTOR (S. BOULARDII) 250 MG CAP PO SCH (10:00)
[2019-09-16] MEDS: CARVEDILOL 3.125 MG TAB PO SCH ×2 (10:00→22:00)
[2019-09-16] MEDS: PANTOPRAZOLE 40 MG/10 ML VIAL INJ IV SCH (10:47)
[2019-09-16] MEDS: MULTIPLE VITAMIN TAB PO SCH (10:47)
[2019-09-16] MEDS: LINEZOLID 600MG/300ML 300 ML IV SCH (10:48)
[2019-09-16] MEDS: levoFLOXacin 250MG 50 ML IV SCH (10:48)
[2019-09-16] MEDS ORDERED: SODIUM FERR GLUC 62.5MG/5ML 125 MG in SODIUM CHL 0.9% 100 ML IV ONE (11:30)
[2019-09-16] MEDS ORDERED: POTASSIUM EFFERVESENT TAB 25 MEQ PO ONE (11:30)
[2019-09-16] MEDS ORDERED: SODIUM FERR GLUC 62.5MG/5ML 125 MG in SODIUM CHL 0.9% 100 ML IV SCH (12:00)
[2019-09-16] MEDS ORDERED: IRON SUCROSE COMPLEX 200 MG in SODIUM CHL 0.9% 100 ML IV ONE (12:00)
[2019-09-16 13:00] VITALS: BP 127/70
[2019-09-16] MEDS: POTASSIUM CHL 20MEQ/100ML 100 ML IV SCH ×2 (15:35→17:35)
[2019-09-16 17:00] VITALS: BP 132/75
[2019-09-16 21:25] VITALS: BP 141/68
[2019-09-16] MEDS: DOXYCYCLINE 100 MG TAB/CAP PO SCH (22:00)
[2019-09-17 05:04] VITALS: BP 125/70
[2019-09-17] MEDS: NYSTATIN (MOUTH-THROAT) 500,000 UNITS/5 ML SUSP MT SCH ×4 (06:00→23:01)
[2019-09-17] MEDS: SUCRALFATE 1 GM/10 ML ORAL SUSP PO SCH ×2 (07:00→17:00)
[2019-09-17] MEDS: METOCLOPRAMIDE HCL 10 MG TAB PO SCH ×4 (07:00→23:01)
[2019-09-17] MEDS: InsuLIN REG 1unit/0.01ml Soln (100units/ml) SC SCH ×4 (07:00→23:00)
[2019-09-17] MEDS: ACCU-CHEK COMFORT CURVE STRIP VI SCH ×4 (07:01→23:04)
[2019-09-17 07:31] LABS: Basophils # (auto) 0 10 ^3/uL (0-0.2); Eosinophils # (auto) 0 10 ^3/uL (0-0.8); Monocytes # (auto) 0.1 10 ^3/uL (0-1.3); Neutrophils # (auto) 3.2 10 ^3/uL (1.6-8.6); Platelet Count (auto) 67 10^3/uL (140-450); Red Blood Cells 2.44 10^6/uL (4.5-5.90); White Blood Cell 4.9 10^3/uL (4.4-10.8)
[2019-09-17 07:32] LABS: Basophils % (auto) 0.1 % (0.0-2.0); Eosinophils % (auto) 0.8 % (0.0-7.0); Hematocrit 21.8 % (41.0-53.0); Hemoglobin 7.3 g/dL (13.5-17.5); Lymphocytes # (auto) 1.5 10 ^3/uL (0.4-5.4); Lymphocytes % (auto) 31.5 % (10.0-50.0); Mean Corpuscular Hgb Conc. 33.5 g/dL (32.0-36.0); Mean Corpuscular Volume 89.5 fL (80.0-100.0); Monocytes % (auto) 2.1 % (0.0-12.0); Neutrophils % (auto) 65.5 % (37.0-80.0); Red Cell Distribution Width 17.4 % (11.8-14.3)
[2019-09-17 07:47] LABS: BUN/Creatinine Ratio 7.2; Calcium 7.7 mg/dL (8.5-10.1); Potassium 3.5 mmol/L (3.5-5.1)
[2019-09-17] MEDS: Glucerna Carbsteady SHAKE Stawberry 8oz PO SCH ×3 (08:00→17:44)
[2019-09-17] MEDS: levoFLOXacin 250MG 50 ML IV SCH (08:58)
[2019-09-17] MEDS: FLORASTOR (S. BOULARDII) 250 MG CAP PO SCH ×2 (08:59→10:00)
[2019-09-17] MEDS: DOXYCYCLINE 100 MG TAB/CAP PO SCH ×3 (08:59→23:02)
[2019-09-17] MEDS: PANTOPRAZOLE 40 MG/10 ML VIAL INJ IV SCH (08:59)
[2019-09-17] MEDS: MULTIPLE VITAMIN TAB PO SCH ×2 (08:59→10:00)
[2019-09-17] MEDS: CARVEDILOL 3.125 MG TAB PO SCH ×3 (09:04→23:01)
[2019-09-17 09:25] VITALS: BP 137/85
[2019-09-17] MEDS: IRON SUCROSE COMPLEX 200 MG in SODIUM CHL 0.9% 100 ML IV SCH (12:00)
[2019-09-17 12:54] VITALS: BP 136/77
[2019-09-17 16:58] VITALS: BP 143/81
[2019-09-17] MEDS: D5W/SOD CHL 0.45% 1,000 ML IV SCH (17:43)
[2019-09-17 22:00] VITALS: BP 139/73
[2019-09-18 05:00] VITALS: BP 101/64
[2019-09-18] MEDS: D5W/SOD CHL 0.45% 1,000 ML IV SCH ×2 (05:49→17:47)
[2019-09-18] MEDS: NYSTATIN (MOUTH-THROAT) 500,000 UNITS/5 ML SUSP MT SCH ×4 (05:50→22:00)
[2019-09-18] MEDS: SUCRALFATE 1 GM/10 ML ORAL SUSP PO SCH ×2 (06:45→17:47)
[2019-09-18] MEDS: ACCU-CHEK COMFORT CURVE STRIP VI SCH ×4 (06:45→22:26)
[2019-09-18] MEDS: InsuLIN REG 1unit/0.01ml Soln (100units/ml) SC SCH ×4 (06:45→22:00)
[2019-09-18] MEDS: METOCLOPRAMIDE HCL 10 MG TAB PO SCH ×4 (06:45→22:26)
[2019-09-18] MEDS: Glucerna Carbsteady SHAKE Stawberry 8oz PO SCH ×3 (08:00→17:47)
[2019-09-18 09:00] VITALS: BP 105/62
[2019-09-18] MEDS ORDERED: SODIUM CHLORIDE LOCK 10 ML ONE (09:04)
[2019-09-18] MEDS ORDERED: LIDOCAINE VISCOUS 2% 15ML UD ONE (09:04)
[2019-09-18] MEDS ORDERED: MIDAZOLAM HCL 5 MG/ML-1ML VIAL ONE (09:07)
[2019-09-18] MEDS ORDERED: diphenhdrAMINE HCL 50 MG/1 ML VL ONE (09:07)
[2019-09-18] MEDS ORDERED: fentaNYL CITRATE 100 MCG/2 ML VL ONE (09:08)
[2019-09-18 09:59] LABS: INR 1.09 (0.9-1.15); Partial Thromboplastin Time 34.5 sec (23.64-32.05)
[2019-09-18] MEDS: FLORASTOR (S. BOULARDII) 250 MG CAP PO SCH (10:00)
[2019-09-18] MEDS: DOXYCYCLINE 100 MG TAB/CAP PO SCH ×2 (10:00→22:26)
[2019-09-18] MEDS: MULTIPLE VITAMIN TAB PO SCH (10:00)
[2019-09-18] MEDS: levoFLOXacin 250MG 50 ML IV SCH (10:58)
[2019-09-18] MEDS: PANTOPRAZOLE 40 MG/10 ML VIAL INJ IV SCH (10:59)
[2019-09-18] MEDS: CARVEDILOL 3.125 MG TAB PO SCH ×2 (10:59→22:25)
[2019-09-18] MEDS: IRON SUCROSE COMPLEX 200 MG in SODIUM CHL 0.9% 100 ML IV SCH (15:01)
[2019-09-18 16:58] VITALS: BP 137/86
[2019-09-18 22:00] VITALS: BP 129/77
[2019-09-19 05:00] VITALS: BP 120/70
[2019-09-19] MEDS: NYSTATIN (MOUTH-THROAT) 500,000 UNITS/5 ML SUSP MT SCH ×4 (06:00→22:32)
[2019-09-19] MEDS: InsuLIN REG 1unit/0.01ml Soln (100units/ml) SC SCH ×4 (06:26→22:33)
[2019-09-19] MEDS: METOCLOPRAMIDE HCL 10 MG TAB PO SCH (06:26)
[2019-09-19] MEDS: SUCRALFATE 1 GM/10 ML ORAL SUSP PO SCH (06:26)
[2019-09-19] MEDS: ACCU-CHEK COMFORT CURVE STRIP VI SCH ×4 (06:27→22:33)
[2019-09-19] MEDS: D5W/SOD CHL 0.45% 1,000 ML IV SCH ×2 (07:15→20:35)
[2019-09-19 08:00] VITALS: BP 118/69
[2019-09-19] MEDS: Glucerna Carbsteady SHAKE Stawberry 8oz PO SCH ×3 (08:00→18:00)
[2019-09-19 09:00] VITALS: BP 118/69
[2019-09-19 09:07] LABS: Basophils # (auto) 0 10 ^3/uL (0-0.2); Eosinophils # (auto) 0 10 ^3/uL (0-0.8); Hemoglobin 7.2 g/dL (13.5-17.5); Lymphocytes # (auto) 1.1 10 ^3/uL (0.4-5.4); Neutrophils # (auto) 1.5 10 ^3/uL (1.6-8.6); White Blood Cell 2.8 10^3/uL (4.4-10.8)
[2019-09-19 09:09] LABS: Basophils % (auto) 0.8 % (0.0-2.0); Eosinophils % (auto) 0.7 % (0.0-7.0); Hematocrit 21.4 % (41.0-53.0); Lymphocytes % (auto) 40.5 % (10.0-50.0); Mean Corpuscular Hgb Conc. 33.7 g/dL (32.0-36.0); Mean Corpuscular Volume 89.1 fL (80.0-100.0); Monocytes # (auto) 0.1 10 ^3/uL (0-1.3); Monocytes % (auto) 4.6 % (0.0-12.0); Neutrophils % (auto) 53.4 % (37.0-80.0); Nucleated Red Blood Cells % 0.2 %; Platelet Count (auto) 47 10^3/uL (140-450)
[2019-09-19 09:29] LABS: Albumin 1.9 g/dL (3.4-5.0); BUN/Creatinine Ratio 6.5; Calcium 7.4 mg/dL (8.5-10.1)
[2019-09-19 09:31] LABS: Bilirubin, Total 0.5 mg/dL (0.2-1.0); Total Protein 5.6 g/dL (6.4-8.2)
[2019-09-19 09:38] LABS: Potassium 2.8 mmol/L (3.5-5.1)
[2019-09-19 13:00] VITALS: BP 135/73
[2019-09-19] MEDS: levoFLOXacin 250MG 50 ML IV SCH (13:20)
[2019-09-19] MEDS: PANTOPRAZOLE 40 MG/10 ML VIAL INJ IV SCH (13:20)
[2019-09-19] MEDS: MULTIPLE VITAMIN TAB PO SCH (13:21)
[2019-09-19] MEDS: POTASSIUM CHL 20MEQ/100ML 100 ML IV SCH ×3 (13:21→20:01)
[2019-09-19] MEDS: CARVEDILOL 3.125 MG TAB PO SCH ×2 (13:23→22:33)
[2019-09-19] MEDS: IRON SUCROSE COMPLEX 200 MG in SODIUM CHL 0.9% 100 ML IV SCH (15:54)
[2019-09-19 16:39] VITALS: BP 130/76
[2019-09-19] MEDS: metroNIDAZOLE 500MG/100ML 100 ML IV SCH ×2 (17:26→22:32)
[2019-09-19] MEDS ORDERED: POTASSIUM CHL 20MEQ/100ML 100 ML IV ONE (20:00)
[2019-09-19 22:00] VITALS: BP 125/78
[2019-09-20] VITALS (8 sets, daily range): BP systolic 127–137; BP diastolic 61–80
[2019-09-20 05:52] LABS: Basophils # (auto) 0 10 ^3/uL (0-0.2); Basophils % (auto) 0.5 % (0.0-2.0); Eosinophils # (auto) 0 10 ^3/uL (0-0.8); Mean Corpuscular Hemoglobin 30.2 pg (28.0-32.0); Mean Corpuscular Hgb Conc. 33.8 g/dL (32.0-36.0); Monocytes # (auto) 0.2 10 ^3/uL (0-1.3); Red Blood Cells 2.25 10^6/uL (4.5-5.90)
[2019-09-20 05:56] LABS: Eosinophils % (auto) 0.6 % (0.0-7.0); Hematocrit 20.1 % (41.0-53.0); Lymphocytes # (auto) 0.9 10 ^3/uL (0.4-5.4); Mean Corpuscular Volume 89.2 fL (80.0-100.0); Monocytes % (auto) 8.8 % (0.0-12.0); Neutrophils # (auto) 1.5 10 ^3/uL (1.6-8.6); Neutrophils % (auto) 57.1 % (37.0-80.0); Nucleated Red Blood Cells % 0.1 %; Platelet Count (auto) 45 10^3/uL (140-450); Red Cell Distribution Width 16.5 % (11.8-14.3); White Blood Cell 2.6 10^3/uL (4.4-10.8)
[2019-09-20] MEDS: NYSTATIN (MOUTH-THROAT) 500,000 UNITS/5 ML SUSP MT SCH ×4 (06:00→22:00)
[2019-09-20 06:03] LABS: Hemoglobin 6.8 g/dL (13.5-17.5)
[2019-09-20] MEDS: ACCU-CHEK COMFORT CURVE STRIP VI SCH ×4 (06:11→22:00)
[2019-09-20] MEDS: InsuLIN REG 1unit/0.01ml Soln (100units/ml) SC SCH ×4 (06:11→22:00)
[2019-09-20] MEDS: metroNIDAZOLE 500MG/100ML 100 ML IV SCH ×3 (06:11→21:39)
[2019-09-20 06:33] LABS: BUN/Creatinine Ratio 7.4; Calcium 7.6 mg/dL (8.5-10.1); Magnesium 1.3 mg/dL (1.6-2.6); Potassium 3.5 mmol/L (3.5-5.1)
[2019-09-20] MEDS: Glucerna Carbsteady SHAKE Stawberry 8oz PO SCH ×3 (08:00→18:00)
[2019-09-20] MEDS: D5W/SOD CHL 0.45% 1,000 ML IV SCH ×2 (09:55→23:15)
[2019-09-20] MEDS: MULTIPLE VITAMIN TAB PO SCH (10:16)
[2019-09-20] MEDS: CARVEDILOL 3.125 MG TAB PO SCH ×2 (10:17→21:40)
[2019-09-20] MEDS: levoFLOXacin 250MG 50 ML IV SCH (10:17)
[2019-09-20] MEDS: PANTOPRAZOLE 40 MG/10 ML VIAL INJ IV SCH (10:17)
[2019-09-20] MEDS: IRON SUCROSE COMPLEX 200 MG in SODIUM CHL 0.9% 100 ML IV SCH (12:26)
[2019-09-21 05:00] VITALS: BP 129/73
[2019-09-21 05:26] LABS: Basophils # (auto) 0 10 ^3/uL (0-0.2); Basophils % (auto) 0.4 % (0.0-2.0); Eosinophils # (auto) 0 10 ^3/uL (0-0.8); Hemoglobin 7.7 g/dL (13.5-17.5); Neutrophils # (auto) 1.7 10 ^3/uL (1.6-8.6); Platelet Count (auto) 50 10^3/uL (140-450); White Blood Cell 3.2 10^3/uL (4.4-10.8)
[2019-09-21 05:29] LABS: Eosinophils % (auto) 0.3 % (0.0-7.0); Hematocrit 22.5 % (41.0-53.0); Lymphocytes % (auto) 32.3 % (10.0-50.0); Mean Corpuscular Hemoglobin 29.7 pg (28.0-32.0); Mean Corpuscular Hgb Conc. 34.3 g/dL (32.0-36.0); Mean Corpuscular Volume 86.6 fL (80.0-100.0); Monocytes # (auto) 0.4 10 ^3/uL (0-1.3); Monocytes % (auto) 13.9 % (0.0-12.0); Neutrophils % (auto) 53.1 % (37.0-80.0); Nucleated Red Blood Cells % 0.1 %; Red Cell Distribution Width 17.2 % (11.8-14.3)
[2019-09-21 05:43] LABS: Calcium 7.4 mg/dL (8.5-10.1)
[2019-09-21 05:49] LABS: Albumin 1.9 g/dL (3.4-5.0); BUN/Creatinine Ratio 7.1; Bilirubin, Total 0.6 mg/dL (0.2-1.0); Total Protein 5.3 g/dL (6.4-8.2)
[2019-09-21] MEDS: NYSTATIN (MOUTH-THROAT) 500,000 UNITS/5 ML SUSP MT SCH ×4 (06:00→21:24)
[2019-09-21] MEDS: metroNIDAZOLE 500MG/100ML 100 ML IV SCH ×3 (06:22→21:08)
[2019-09-21] MEDS: InsuLIN REG 1unit/0.01ml Soln (100units/ml) SC SCH ×4 (06:30→21:19)
[2019-09-21] MEDS: ACCU-CHEK COMFORT CURVE STRIP VI SCH ×4 (06:31→21:39)
[2019-09-21] MEDS: Glucerna Carbsteady SHAKE Stawberry 8oz PO SCH ×3 (08:00→18:00)
[2019-09-21 08:53] VITALS: BP 140/80
[2019-09-21] MEDS: levoFLOXacin 250MG 50 ML IV SCH (09:36)
[2019-09-21] MEDS: PANTOPRAZOLE 40 MG/10 ML VIAL INJ IV SCH (09:37)
[2019-09-21] MEDS: MULTIPLE VITAMIN TAB PO SCH (09:37)
[2019-09-21] MEDS: CARVEDILOL 3.125 MG TAB PO SCH ×2 (09:37→21:39)
[2019-09-21] MEDS: D5W/SOD CHL 0.45% 1,000 ML IV SCH (12:35)
[2019-09-21] MEDS: IRON SUCROSE COMPLEX 200 MG in SODIUM CHL 0.9% 100 ML IV SCH (12:39)
[2019-09-21 12:56] VITALS: BP 131/77
[2019-09-21 16:49] VITALS: BP 135/77
[2019-09-21 22:00] VITALS: BP 140/83
[2019-09-22 05:00] VITALS: BP 113/65
[2019-09-22] MEDS: D5W/SOD CHL 0.45% 1,000 ML IV SCH ×3 (05:00→22:38)
[2019-09-22] MEDS: NYSTATIN (MOUTH-THROAT) 500,000 UNITS/5 ML SUSP MT SCH ×4 (05:15→20:53)
[2019-09-22] MEDS: metroNIDAZOLE 500MG/100ML 100 ML IV SCH ×3 (05:45→21:08)
[2019-09-22] MEDS: InsuLIN REG 1unit/0.01ml Soln (100units/ml) SC SCH ×4 (05:49→20:31)
[2019-09-22] MEDS: ACCU-CHEK COMFORT CURVE STRIP VI SCH ×4 (05:49→20:32)
[2019-09-22] MEDS: Glucerna Carbsteady SHAKE Stawberry 8oz PO SCH ×3 (08:00→18:00)
[2019-09-22 09:00] VITALS: BP 105/65
[2019-09-22] MEDS: levoFLOXacin 250MG 50 ML IV SCH (09:49)
[2019-09-22] MEDS: PANTOPRAZOLE 40 MG/10 ML VIAL INJ IV SCH (09:49)
[2019-09-22] MEDS: MULTIPLE VITAMIN TAB PO SCH (09:50)
[2019-09-22] MEDS: CARVEDILOL 3.125 MG TAB PO SCH ×2 (09:50→21:09)
[2019-09-22] MEDS: IRON SUCROSE COMPLEX 200 MG in SODIUM CHL 0.9% 100 ML IV SCH (12:39)
[2019-09-22 13:00] VITALS: BP 120/71
[2019-09-22 17:00] VITALS: BP 116/70
[2019-09-22 22:00] VITALS: BP 121/67
[2019-09-23 05:00] VITALS: BP 127/75
[2019-09-23] MEDS: NYSTATIN (MOUTH-THROAT) 500,000 UNITS/5 ML SUSP MT SCH ×4 (05:45→21:32)
[2019-09-23] MEDS: metroNIDAZOLE 500MG/100ML 100 ML IV SCH ×3 (05:45→21:32)
[2019-09-23] MEDS: InsuLIN REG 1unit/0.01ml Soln (100units/ml) SC SCH ×4 (05:45→21:38)
[2019-09-23] MEDS: ACCU-CHEK COMFORT CURVE STRIP VI SCH ×4 (05:46→21:33)
[2019-09-23 06:50] LABS: Albumin 2.2 g/dL (3.4-5.0); Calcium 7.6 mg/dL (8.5-10.1); Hematocrit 26.1 % (41.0-53.0); Magnesium 1.3 mg/dL (1.6-2.6); Mean Corpuscular Hgb Conc. 34.6 g/dL (32.0-36.0); Mean Corpuscular Volume 86.6 fL (80.0-100.0); Platelet Count (auto) 122 10^3/uL (140-450); Red Blood Cells 3.01 10^6/uL (4.5-5.90); Red Cell Distribution Width 16.9 % (11.8-14.3)
[2019-09-23 06:55] LABS: Band Neutrophils % (manual) 0; Basophils % (manual) 0 (0.0-2.0); Blast Cells 0; Eosinophils % (manual) 0 (0-7); Metamyelocytes % 0; Myelocytes % 0; Promyelocytes % 0; Reactive Lymphocytes 0
[2019-09-23 06:56] LABS: Bilirubin, Total 0.5 mg/dL (0.2-1.0); Total Protein 5.8 g/dL (6.4-8.2)
[2019-09-23 07:38] LABS: Potassium 2.6 mmol/L (3.5-5.1)
[2019-09-23 07:44] LABS: Lymphocytes % (manual) 27 (10.0-50.0); Monocytes % (manual) 11 (0-12)
[2019-09-23 08:00] VITALS: BP 121/76
[2019-09-23] MEDS: Glucerna Carbsteady SHAKE Stawberry 8oz PO SCH ×3 (08:33→17:47)
[2019-09-23 08:48] LABS: Hepatitis B Surface Antibody Negative
[2019-09-23 09:22] LABS: Hepatitis A Total Antibody Positive
[2019-09-23 09:35] LABS: Hepatitis B Core Total AB Negative
[2019-09-23 09:36] LABS: Hepatitis B Surface Antigen Negative (Negative); Hepatitis C Antibody Negative (Negative)
[2019-09-23] MEDS ORDERED: POTASSIUM CHL 20 Meq TABLET PO ONE (10:00)
[2019-09-23] MEDS: levoFLOXacin 250MG 50 ML IV SCH (10:36)
[2019-09-23] MEDS: MULTIPLE VITAMIN TAB PO SCH (10:37)
[2019-09-23] MEDS: PANTOPRAZOLE 40 MG/10 ML VIAL INJ IV SCH (10:37)
[2019-09-23] MEDS: CARVEDILOL 3.125 MG TAB PO SCH ×2 (10:37→21:36)
[2019-09-23] MEDS: MAGNESIUM SULFATE 1GM/100ML 100 ML IV SCH ×4 (11:42→17:46)
[2019-09-23 12:00] VITALS: BP 131/81
[2019-09-23] MEDS: POTASSIUM CHL 20MEQ/100ML 100 ML IV SCH ×3 (12:20→16:11)
[2019-09-23] MEDS: IRON SUCROSE COMPLEX 200 MG in SODIUM CHL 0.9% 100 ML IV SCH (12:37)
[2019-09-23] MEDS ORDERED: POTASSIUM CHL 20MEQ/100ML 100 ML IV SCH (14:15)
[2019-09-23 17:00] VITALS: BP 120/73
[2019-09-23] MEDS: D5W/SOD CHL 0.45% 1,000 ML IV SCH (17:46)
[2019-09-23 21:00] VITALS: BP 119/72
[2019-09-24] MEDS: D5W/SOD CHL 0.45% 1,000 ML IV SCH ×2 (04:28→20:35)
[2019-09-24 05:00] VITALS: BP 94/66
[2019-09-24] MEDS: NYSTATIN (MOUTH-THROAT) 500,000 UNITS/5 ML SUSP MT SCH ×4 (05:37→22:00)
[2019-09-24] MEDS: metroNIDAZOLE 500MG/100ML 100 ML IV SCH (05:37)
[2019-09-24] MEDS: InsuLIN REG 1unit/0.01ml Soln (100units/ml) SC SCH ×4 (05:37→22:00)
[2019-09-24] MEDS: ACCU-CHEK COMFORT CURVE STRIP VI SCH ×4 (05:38→22:00)
[2019-09-24 06:25] LABS: Calcium 7.8 mg/dL (8.5-10.1); Potassium 3.2 mmol/L (3.5-5.1)
[2019-09-24 06:32] LABS: BUN/Creatinine Ratio 5.1
[2019-09-24 08:00] VITALS: BP 110/64
[2019-09-24] MEDS: Glucerna Carbsteady SHAKE Stawberry 8oz PO SCH ×3 (08:00→17:50)
[2019-09-24 09:00] VITALS: BP 110/64
[2019-09-24] MEDS: CARVEDILOL 3.125 MG TAB PO SCH ×2 (10:00→22:00)
[2019-09-24] MEDS ORDERED: POTASSIUM CHLORIDE 40 MEQ, LIDOCAINE 1% (LOCAL ANESTH.) 4 ML in SODIUM CHL 0.9% 100 ML IV ONE (11:30)
[2019-09-24] MEDS: PANTOPRAZOLE 40 MG/10 ML VIAL INJ IV SCH (11:30)
[2019-09-24] MEDS: levoFLOXacin 250MG 50 ML IV SCH (11:30)
[2019-09-24] MEDS ORDERED: MAGNESIUM OXIDE 400 MG TAB PO ONE (11:30)
[2019-09-24] MEDS: MULTIPLE VITAMIN TAB PO SCH (11:31)
[2019-09-24] MEDS: POTASSIUM CHL 20 Meq TABLET PO ONE ×2 (11:38→11:48)
[2019-09-24] MEDS: MAGNESIUM SULFATE 1GM/100ML 100 ML IV SCH ×2 (12:00→13:00)
[2019-09-24] MEDS ORDERED: POTASSIUM CHL 20MEQ/100ML 100 ML IV ONE (12:30)
[2019-09-24] MEDS: IRON SUCROSE COMPLEX 200 MG in SODIUM CHL 0.9% 100 ML IV SCH (12:40)
[2019-09-24 13:00] VITALS: BP 100/69
[2019-09-24] MEDS ORDERED: MAGNESIUM SULFATE 1GM/100ML 100 ML IV SCH (13:00)
[2019-09-24] MEDS: metroNIDAZOLE 500 MG TAB PO SCH ×2 (14:15→21:49)
[2019-09-24 16:27] VITALS: BP 98/76
[2019-09-24] MEDS: MAGNESIUM OXIDE 400 MG TAB PO SCH (21:49)
[2019-09-24 22:00] VITALS: BP 100/68
[2019-09-25 05:00] VITALS: BP_SYST 77
[2019-09-25 06:00] VITALS: BP 117/77
[2019-09-25] MEDS: NYSTATIN (MOUTH-THROAT) 500,000 UNITS/5 ML SUSP MT SCH ×4 (06:00→22:00)
[2019-09-25] MEDS: metroNIDAZOLE 500 MG TAB PO SCH ×3 (06:12→22:23)
[2019-09-25] MEDS: ACCU-CHEK COMFORT CURVE STRIP VI SCH ×4 (06:15→22:00)
[2019-09-25] MEDS: InsuLIN REG 1unit/0.01ml Soln (100units/ml) SC SCH ×4 (06:32→22:00)
[2019-09-25 07:08] LABS: Calcium 7.6 mg/dL (8.5-10.1); Potassium 3.6 mmol/L (3.5-5.1)
[2019-09-25 07:11] LABS: BUN/Creatinine Ratio 5.6
[2019-09-25 08:00] VITALS: BP 96/61
[2019-09-25] MEDS: Glucerna Carbsteady SHAKE Stawberry 8oz PO SCH ×2 (08:00→12:00)
[2019-09-25] MEDS: PANTOPRAZOLE 40 MG/10 ML VIAL INJ IV SCH (10:37)
[2019-09-25] MEDS: levoFLOXacin 250MG 50 ML IV SCH (10:37)
[2019-09-25] MEDS: POTASSIUM CHL 20 Meq TABLET PO SCH (10:38)
[2019-09-25] MEDS: CARVEDILOL 3.125 MG TAB PO SCH ×2 (10:38→22:00)
[2019-09-25] MEDS: MULTIPLE VITAMIN TAB PO SCH (10:39)
[2019-09-25] MEDS: MAGNESIUM OXIDE 400 MG TAB PO SCH ×2 (10:39→22:00)
[2019-09-25 12:00] VITALS: BP 94/62
[2019-09-25] MEDS: IRON SUCROSE COMPLEX 200 MG in SODIUM CHL 0.9% 100 ML IV SCH (13:40)
[2019-09-25 16:56] VITALS: BP 105/78
[2019-09-25] MEDS: D5W/SOD CHL 0.45% 1,000 ML IV SCH (17:53)
[2019-09-25 22:09] VITALS: BP 110/69
[2019-09-26 05:00] VITALS: BP 113/72
[2019-09-26] MEDS: NYSTATIN (MOUTH-THROAT) 500,000 UNITS/5 ML SUSP MT SCH ×4 (06:00→22:00)
[2019-09-26] MEDS: metroNIDAZOLE 500 MG TAB PO SCH ×3 (06:25→22:00)
[2019-09-26] MEDS: InsuLIN REG 1unit/0.01ml Soln (100units/ml) SC SCH ×4 (06:30→22:00)
[2019-09-26] MEDS: ACCU-CHEK COMFORT CURVE STRIP VI SCH ×4 (06:31→22:06)
[2019-09-26] MEDS: D5W/SOD CHL 0.45% 1,000 ML IV SCH ×2 (06:32→11:41)
[2019-09-26 08:00] VITALS: BP 110/73
[2019-09-26] MEDS: Glucerna Carbsteady SHAKE Stawberry 8oz PO SCH ×3 (08:00→17:05)
[2019-09-26] MEDS: levoFLOXacin 250MG 50 ML IV SCH (09:46)
[2019-09-26] MEDS: MAGNESIUM OXIDE 400 MG TAB PO SCH ×2 (09:47→22:00)
[2019-09-26] MEDS: CARVEDILOL 3.125 MG TAB PO SCH ×2 (09:47→22:00)
[2019-09-26] MEDS: POTASSIUM CHL 20 Meq TABLET PO SCH (09:47)
[2019-09-26] MEDS: PANTOPRAZOLE 40 MG/10 ML VIAL INJ IV SCH (09:47)
[2019-09-26] MEDS: MULTIPLE VITAMIN TAB PO SCH (10:01)
[2019-09-26] MEDS: IRON SUCROSE COMPLEX 200 MG in SODIUM CHL 0.9% 100 ML IV SCH (11:23)
[2019-09-26 12:00] VITALS: BP 120/73
[2019-09-26 16:44] VITALS: BP 110/73
[2019-09-26 21:40] VITALS: BP 105/64
[2019-09-26] MEDS: DAKINS QUARTER STR 0.125% (NaHypochlorite) 473 ML TOPICAL SOL TOP SCH (22:00)
[2019-09-27 05:38] VITALS: BP 129/83
[2019-09-27] MEDS: metroNIDAZOLE 500 MG TAB PO SCH ×3 (05:53→22:43)
[2019-09-27] MEDS: NYSTATIN (MOUTH-THROAT) 500,000 UNITS/5 ML SUSP MT SCH ×4 (05:53→22:00)
[2019-09-27] MEDS: InsuLIN REG 1unit/0.01ml Soln (100units/ml) SC SCH ×4 (06:47→22:00)
[2019-09-27] MEDS: ACCU-CHEK COMFORT CURVE STRIP VI SCH ×4 (06:47→22:43)
[2019-09-27 08:00] VITALS: BP 114/72
[2019-09-27] MEDS: Glucerna Carbsteady SHAKE Stawberry 8oz PO SCH ×3 (08:00→17:35)
[2019-09-27] MEDS: PANTOPRAZOLE 40 MG/10 ML VIAL INJ IV SCH (09:25)
[2019-09-27] MEDS: D5W/SOD CHL 0.45% 1,000 ML IV SCH ×2 (09:25→16:37)
[2019-09-27] MEDS: levoFLOXacin 250MG 50 ML IV SCH (09:25)
[2019-09-27] MEDS: MULTIPLE VITAMIN TAB PO SCH (09:25)
[2019-09-27] MEDS: POTASSIUM CHL 20 Meq TABLET PO SCH (09:26)
[2019-09-27] MEDS: CARVEDILOL 3.125 MG TAB PO SCH ×2 (09:26→22:00)
[2019-09-27] MEDS: MAGNESIUM OXIDE 400 MG TAB PO SCH ×2 (09:26→22:00)
[2019-09-27] MEDS: DAKINS QUARTER STR 0.125% (NaHypochlorite) 473 ML TOPICAL SOL TOP SCH ×3 (09:26→22:44)
[2019-09-27] MEDS: IRON SUCROSE COMPLEX 200 MG in SODIUM CHL 0.9% 100 ML IV SCH (11:53)
[2019-09-27 12:00] VITALS: BP 116/76
[2019-09-27 16:49] VITALS: BP 106/66
[2019-09-27 22:00] VITALS: BP 118/74
[2019-09-28 04:57] VITALS: BP 99/64
[2019-09-28] MEDS: D5W/SOD CHL 0.45% 1,000 ML IV SCH ×2 (05:00→17:36)
[2019-09-28] MEDS: NYSTATIN (MOUTH-THROAT) 500,000 UNITS/5 ML SUSP MT SCH ×4 (06:00→22:00)
[2019-09-28] MEDS: metroNIDAZOLE 500 MG TAB PO SCH ×4 (06:00→23:03)
[2019-09-28] MEDS: ACCU-CHEK COMFORT CURVE STRIP VI SCH ×4 (06:32→23:00)
[2019-09-28] MEDS: InsuLIN REG 1unit/0.01ml Soln (100units/ml) SC SCH ×4 (06:32→23:00)
[2019-09-28 07:11] LABS: Basophils # (auto) 0 10 ^3/uL (0-0.2); Basophils % (auto) 0.1 % (0.0-2.0); Eosinophils # (auto) 0 10 ^3/uL (0-0.8); Eosinophils % (auto) 0.2 % (0.0-7.0); Mean Corpuscular Hgb Conc. 33.2 g/dL (32.0-36.0); Monocytes # (auto) 0.7 10 ^3/uL (0-1.3)
[2019-09-28 07:13] LABS: Hematocrit 25.2 % (41.0-53.0); Hemoglobin 8.4 g/dL (13.5-17.5); Lymphocytes # (auto) 1.2 10 ^3/uL (0.4-5.4); Lymphocytes % (auto) 17.7 % (10.0-50.0); Mean Corpuscular Hemoglobin 29.4 pg (28.0-32.0); Mean Corpuscular Volume 88.5 fL (80.0-100.0); Monocytes % (auto) 9.9 % (0.0-12.0); Neutrophils # (auto) 5.1 10 ^3/uL (1.6-8.6); Neutrophils % (auto) 72.1 % (37.0-80.0); Platelet Count (auto) 353 10^3/uL (140-450); Red Blood Cells 2.84 10^6/uL (4.5-5.90); Red Cell Distribution Width 16.8 % (11.8-14.3); White Blood Cell 7.1 10^3/uL (4.4-10.8)
[2019-09-28 07:41] LABS: BUN/Creatinine Ratio 5.5; Calcium 7.5 mg/dL (8.5-10.1); Potassium 3.1 mmol/L (3.5-5.1)
[2019-09-28] MEDS: Glucerna Carbsteady SHAKE Stawberry 8oz PO SCH ×3 (08:00→17:36)
[2019-09-28 09:23] VITALS: BP 104/70
[2019-09-28] MEDS: MAGNESIUM OXIDE 400 MG TAB PO SCH ×3 (10:00→23:03)
[2019-09-28] MEDS: CARVEDILOL 3.125 MG TAB PO SCH ×3 (10:00→23:04)
[2019-09-28] MEDS: PANTOPRAZOLE 40 MG/10 ML VIAL INJ IV SCH (10:30)
[2019-09-28] MEDS: levoFLOXacin 250MG 50 ML IV SCH (10:30)
[2019-09-28] MEDS: DAKINS QUARTER STR 0.125% (NaHypochlorite) 473 ML TOPICAL SOL TOP SCH ×2 (10:31→22:00)
[2019-09-28] MEDS: MULTIPLE VITAMIN TAB PO SCH (10:31)
[2019-09-28] MEDS: IRON SUCROSE COMPLEX 200 MG in SODIUM CHL 0.9% 100 ML IV SCH (12:15)
[2019-09-28 12:52] VITALS: BP 113/74
[2019-09-28] MEDS: POTASSIUM CHL 20MEQ/100ML 100 ML IV SCH ×2 (14:54→17:08)
[2019-09-28 16:35] VITALS: BP 124/76
[2019-09-28 20:00] VITALS: BP 117/69
[2019-09-28 22:00] VITALS: BP 117/69
[2019-09-28] MEDS: MEGESTROL ACET 400MG/10ML ORAL SUSP PO SCH ×2 (22:00→23:03)
[2019-09-29 05:30] VITALS: BP 105/67
[2019-09-29] MEDS: NYSTATIN (MOUTH-THROAT) 500,000 UNITS/5 ML SUSP MT SCH ×2 (06:00→11:00)
[2019-09-29] MEDS: metroNIDAZOLE 500 MG TAB PO SCH ×2 (06:00→14:00)
[2019-09-29] MEDS: InsuLIN REG 1unit/0.01ml Soln (100units/ml) SC SCH ×2 (06:33→11:00)
[2019-09-29] MEDS: ACCU-CHEK COMFORT CURVE STRIP VI SCH ×2 (06:33→11:00)
[2019-09-29 08:00] VITALS: BP 120/71
[2019-09-29] MEDS: Glucerna Carbsteady SHAKE Stawberry 8oz PO SCH ×2 (08:00→11:00)
[2019-09-29] MEDS: CARVEDILOL 3.125 MG TAB PO SCH (10:00)
[2019-09-29] MEDS: MAGNESIUM OXIDE 400 MG TAB PO SCH (10:00)
[2019-09-29] MEDS: MULTIPLE VITAMIN TAB PO SCH (10:00)
[2019-09-29] MEDS: D5W/SOD CHL 0.45% 1,000 ML IV SCH (10:29)
[2019-09-29] MEDS: PANTOPRAZOLE 40 MG/10 ML VIAL INJ IV SCH (10:29)
[2019-09-29] MEDS: DAKINS QUARTER STR 0.125% (NaHypochlorite) 473 ML TOPICAL SOL TOP SCH (10:29)
[2019-09-29] MEDS: levoFLOXacin 250MG 50 ML IV SCH (10:29)
[2019-09-29] MEDS: IRON SUCROSE COMPLEX 200 MG in SODIUM CHL 0.9% 100 ML IV SCH (12:12)
[2019-09-29 13:00] VITALS: BP 112/75
== END 2019-09-29 15:50 | disposition left against medical advice (07) | DRG 710 ==
LOC: ER 11:19 → OVERFLOW 11:20 → ICU WEST 09-01 08:00 → TELE-WESTW 09-02 21:54
PROVIDERS: ADMIT Nurse Practitioner Acute Care; ATTEND Internal Medicine
PROC: 02HV33Z Insertion of Infusion Device into Superior Vena Cava, Percutaneous Approach (ICD-10-PCS; principal; 2019-08-31)
PROC: 02HV33Z Insertion of Infusion Device into Superior Vena Cava, Percutaneous Approach (ICD-10-PCS; 2019-09-01)
PROC: 0QBN0ZZ Excision of Right Metatarsal, Open Approach (ICD-10-PCS; 2019-09-11)
PROC: 0DB68ZX Excision of Stomach, Via Natural or Artificial Opening Endoscopic, Diagnostic (ICD-10-PCS; 2019-09-18)
PROC: 0DB88ZX Excision of Small Intestine, Via Natural or Artificial Opening Endoscopic, Diagnostic (ICD-10-PCS; 2019-09-18)
PROC: 30233N1 Transfusion of Nonautologous Red Blood Cells into Peripheral Vein, Percutaneous Approach (ICD-10-PCS; 2019-09-18)
DX: A41.9 Sepsis, unspecified organism (principal); N17.0 Acute kidney failure with tubular necrosis; R65.21 Severe sepsis with septic shock; E43 Unspecified severe protein-calorie malnutrition; G92 Toxic encephalopathy; D69.6 Thrombocytopenia, unspecified; E11.22 Type 2 diabetes mellitus with diabetic chronic kidney disease; K31.3 Pylorospasm, not elsewhere classified; E87.6 Hypokalemia; E87.0 Hyperosmolality and hypernatremia; D63.8 Anemia in other chronic diseases classified elsewhere; N18.3 Chronic kidney disease, stage 3 (moderate); E11.621 Type 2 diabetes mellitus with foot ulcer; E11.42 Type 2 diabetes mellitus with diabetic polyneuropathy; E11.69 Type 2 diabetes mellitus with other specified complication; I13.0 Hypertensive heart and chronic kidney disease with heart failure and stage 1 through stage 4 chronic kidney disease, or unspecified chronic kidney disease; I50.42 Chronic combined systolic (congestive) and diastolic (congestive) heart failure; K44.9 Diaphragmatic hernia without obstruction or gangrene; K29.70 Gastritis, unspecified, without bleeding; Z68.33 Body mass index [BMI] 33.0-33.9, adult; M86.8X7 Other osteomyelitis, ankle and foot; E11.51 Type 2 diabetes mellitus with diabetic peripheral angiopathy without gangrene; E78.5 Hyperlipidemia, unspecified; F32.9 Major depressive disorder, single episode, unspecified; H54.62 Unqualified visual loss, left eye, normal vision right eye; L03.115 Cellulitis of right lower limb; L97.519 Non-pressure chronic ulcer of other part of right foot with unspecified severity; Z53.20 Procedure and treatment not carried out because of patient's decision for unspecified reasons; R13.10 Dysphagia, unspecified; J98.11 Atelectasis; F41.9 Anxiety disorder, unspecified; X58.XXXA Exposure to other specified factors, initial encounter; Z53.29 Procedure and treatment not carried out because of patient's decision for other reasons; S91.301A Unspecified open wound, right foot, initial encounter; Z82.49 Family history of ischemic heart disease and other diseases of the circulatory system; Z79.4 Long term (current) use of insulin; Z83.3 Family history of diabetes mellitus; Z86.14 Personal history of Methicillin resistant Staphylococcus aureus infection; Y93.89 Activity, other specified; Y92.89 Other specified places as the place of occurrence of the external cause; Y99.8 Other external cause status; K80.10 Calculus of gallbladder with chronic cholecystitis without obstruction
CPT/HCPCS: 36415; 36556; 70450; 70551; 71045; 71250; 73700; 74176; 78226; 80048; 80053; 80061; 80202; 81001; 82270; 82607; 82728; 82746; 82962; 83036; 83605; 83615; 83690; 83735; 84443; 84484; 85007; 85014; 85018; 85025; 85027; 85610; 85652; 85730; 86141; 86703; 86704; 86706; 86708; 86803; 86850; 86900; 86901; 86920; 87040; 87070; 87075; 87077; 87081; 87205; 87340; 93306; 93312; 96365; 96366; 97110; 97116; 97530; 99152; 99291; C9113; G0378; J0171; J0690; J0696; J1756; J1815; J2001; J2250; J2405; J2543; J2704; J3480; J3490; J7042; V2790